=== PATIENT | female | born 1985 | race Caucasian/White ===

== ENCOUNTER 2017-03-20 08:45 | Day surgery (SDC) | payer MEDICAID ==
[~2017-03-20 08:45] MED LIST: Lactated Ringers 1,000 ML IV SCH; Sodium Chloride 0.9% 10 ML Syringe FLUSH PRN; cefOXitin 2 GM Vial IVPUSH ONE; cefOXitin 2 GM in Sodium Chloride 0.9% 100 ML IV ONE
[2017-03-20] MEDS ORDERED: Propofol 200 MG/20 ML SDV IV ONE (10:00)
[2017-03-20] MEDS ORDERED: Dexamethasone 4 MG/ML 5 ML MDV IVPUSH ONE (10:00)
[2017-03-20] MEDS ORDERED: Midazolam 1 MG/ML 2 ML SDV IV ONE (10:00)
[2017-03-20] MEDS ORDERED: Rocuronium 100 MG/10 ML MDV IV ONE (10:00)
[2017-03-20] MEDS ORDERED: Lactated Ringers 1,000 ML IV ONE (10:00)
[2017-03-20] MEDS ORDERED: diphenhydrAMINE 50 MG/ML SDV IV ONE (10:00)
[2017-03-20] MEDS ORDERED: fentaNYL 100 MCG/2 ML SDV IV ONE (10:00)
[2017-03-20] MEDS ORDERED: Ondansetron 4 MG/2 ML SDV IVPUSH ONE (10:00)
[2017-03-20] MEDS ORDERED: Sugammadex Sodium 200 MG/2 ML VIAL IV ONE (10:00)
[2017-03-20] MEDS ORDERED: Ketorolac 30 MG/ML SDV IVPUSH ONE (10:00)
[2017-03-20] MEDS ORDERED: Lidocaine 2% 100 MG/5 ML Syringe IVPUSH ONE (10:00)
[2017-03-20] MEDS ORDERED: Succinylcholine 200 MG/10 ML MDV IV ONE (10:00)
[2017-03-20] MEDS ORDERED: Bupivacaine 0.5% 30 ML SDV ONE (10:25)
[2017-03-20] MEDS ORDERED: Lidocaine 1% with EPINEPHrine 1:100,000 20 ML MDV ONE (10:26)
[2017-03-20] MEDS ORDERED: Acetaminophen/HYDROcodone 325-5 MG Tab PO PRN (10:45)
--- NOTE | 2017-03-20 10:50 | PCM.OPNOTE ---
- General Post-Op/Procedure Note Date of Surgery/Procedure: 03/20/17 Operative Procedure(s): lap cholecystectomy Findings: gallbladder and stones critical view obtained Pre Op Diagnosis: sx gallstones Post-Op Diagnosis: Same Anesthesia Technique: General ET Tube, Local (5 ml 1 % lido with epi/0.5% buvipicaine) Primary Surgeon: Jay Ocasio Anesthesia Provider: Ariana Gomez Pathology: gallbladder and contents EBL in mLs: 2 Complications: None Condition: Good Free Text/Narrative:: see dictation [id number]
[2017-03-20] MEDS ORDERED: Morphine 2 MG/ML Syringe IVPUSH PRN (10:56)
[2017-03-20] MEDS ORDERED: hydrOXYzine HCl 50 MG/ML SDV IM ONE (11:18)
--- NOTE | 2017-03-20 14:08 | OR ---
DATE OF OPERATION: 03/20/2017 SURGEON: Jay Ocasio MD PROCEDURE PERFORMED: Laparoscopic cholecystectomy. PREOPERATIVE DIAGNOSIS: Symptomatic gallstones. POSTOPERATIVE DIAGNOSIS: Symptomatic gallstones. INDICATIONS FOR PROCEDURE: This is a 31-year-old white female who was referred with history of abdominal pain primarily in the right upper quadrant with radiation into her back. She is noted to have gallstones on ultrasound, appeared to have symptomatic gallbladder disease. She was offered and accepted a laparoscopic cholecystectomy. INTRAOPERATIVE FINDINGS: A critical view was obtained. A total of 5 mL of 1:1 mixture of 1% lidocaine with epinephrine and 0.5% bupivacaine was used to infiltrate our trocar sites. DESCRIPTION OF PROCEDURE: After an excellent general anesthetic was administered, the patient was prepped and draped in the usual sterile manner. Attention was 1st turned to the area just below the umbilicus, which was infiltrated with our local. A small vertical midline incision was carried out. Blunt dissection was carried out exposing the midline fascia. The midline fascia was then elevated and incised, and the peritoneal cavity was palpated. After digital palpation to ensure that there were no adhesions, a 10.5 mm Benoit trocar was inserted into the patient's abdomen. Three additional 5 mm ports were placed, one in the midline epigastrium and two below the right costal margin at the level of the midclavicular and anterior axillary line. This was done by infiltrating local making a stab incision through the skin and then inserting trocars. The dome of the gallbladder was grasped and retracted in a cephalad fashion. The infundibulum was grasped and careful blunt dissection was carried out exposing the cystic duct and cystic artery. Two clips were placed proximally on the cystic duct and one distally on the cystic duct, which then I transected. The process was repeated for the cystic artery. L-hook cautery dissection was then used to dissect the gallbladder free from the gallbladder fossa. The specimen was then passed into a specimen bag and delivered out through the umbilicus. The area was irrigated. After assuring excellent hemostasis, the trocars were removed, the pneumoperitoneum was released, the midline fascial defect in the umbilicus was closed with a [id number] 0 Vicryl, and the 2 stay sutures were tied to each other. Subcu 4-0 Vicryl was used to close the skin. Needle, sponge, and instrument counts were reported as correct. The patient was taken to the recovery room in good condition. /[id number] /MODL
== END 2017-03-20 14:15 | disposition home or self-care (01) ==
LOC: FB.SDS 08:45
PROVIDERS: ATTEND Surgery
DX: K80.10 Calculus of gallbladder with chronic cholecystitis without obstruction (principal); E03.8 Other specified hypothyroidism; F32.9 Major depressive disorder, single episode, unspecified; E66.9 Obesity, unspecified; F17.210 Nicotine dependence, cigarettes, uncomplicated; Z79.899 Other long term (current) drug therapy; Z88.8 Allergy status to other drugs, medicaments and biological substances; Z68.28 Body mass index [BMI] 28.0-28.9, adult
CPT/HCPCS: 47562; 81025; 88304; A9270; J0330; J0694; J1100; J1200; J1885; J2250; J2405; J2704; J3010; J3410; J7120; C9399